=== PATIENT | male | born 1970 | race Caucasian/White ===

== ENCOUNTER 2019-09-12 21:47 | Emergency (ER) | payer OTHER, SELFPAY ==
--- NOTE | ~2019-09-12 | XR_ITS ---
EXAMINATION: XR knee LT 3V DATE: 09/12/2019 22:25 INDICATION: Nontraumatic medial left knee pain TECHNIQUE: Anteroposterior, 2 oblique and crosstable lateral views of the left knee were obtained COMPARISON: None. FINDINGS: Alignment is normal. No fracture. Joint spaces appear normal on nonweightbearing imaging. Small left knee joint effusion without layering lipohemarthrosis. Soft tissues are unremarkable. IMPRESSION: 1. Small left knee joint effusion. No osseous abnormality. Reviewed, dictated and finalized at location A.
--- NOTE | 2019-09-12 22:01 | ED.LOWEXIN ---
HPI - Extremity Injury (Lower) General Chief Complaint: Extremity Problem,Nontraumatic Stated Complaint: pain in left knee Time Seen by Provider: 09/12/19 22:01 Source: patient and family Mode of arrival: ambulatory Limitations: no limitations History of Present Illness HPI Narrative: 49-year-old man with a history of gout comes in today complaining of left knee pain that has been present for the last 3 days. Patient states that he has had no specific injury. He states that he has occasional popping and cracking in that knee. He denies fever, nausea, vomiting. 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 Injury: Left: knee Severity: moderate Relieving factors: nothing Exacerbating factors: weight bearing and movement Associated symptoms: swelling and able to partially bear weight Other symptoms: none Related Data Allergies Allergy/AdvReac Type Severity Reaction Status Date / Time No Known Allergies Allergy Verified 05/16/19 17:54 Review of Systems Constitutional: Constitutional: Denies chills and Denies fever(s) ENT: Denies dysphagia, Denies nasal congestion and Denies sore throat Cardiovascular: Cardiovascular: Denies chest pain and Denies radiating jaw, neck or arm pain Respiratory: Respiratory: Denies cough and Denies dyspnea Gastrointestinal: Gastrointestinal: Denies abdominal pain, Denies nausea and Denies vomiting Genitourinary: Genitourinary: Denies hematuria, Reports dysuria and Denies urinary frequency Musculoskeletal: Musculoskeletal: Reports as per HPI, Denies myalgias, Reports arthralgias, Reports joint swelling and Denies muscle cramps Integumentary/Breasts: Skin/Breast: Denies pruritus, Denies rash and Denies skin ulcer Neurologic: Denies vertigo, Denies dizziness and Denies syncope Psychiatric: Psychiatric: Denies anxiety and Denies depression Hematologic/Lymphatic: Hematologic/Lymphatic: Denies easy bleeding and Denies easy bruising Allergic/Immunologic: Allergic/Immunologic: Denies lip swelling and Denies wheezing PMFSH Past Medical History Medical History (Updated 09/12/19 @ 22:50 by Jose Macdonald MD) Gout Surgical History Surgical History (Updated 09/12/19 @ 22:18 by Jose Macdonald MD) Entrapment of left ulnar nerve at elbow History of open reduction and internal fixation (ORIF) procedure Social History Social History Smoking status: Never smoker Alcohol intake: never Substance use: never Living arrangements: with family Gender identity (if verbalized by the patient): Male Exam Const: General: alert Nutritional Appearance: obese Orientation/consciousness: patient oriented x3 Limitations: no limitations Other: Mild acute distress. Eyes: Conjunctivae: conjunctivae normal Pupils: Equal, round and reactive pupils present EOM: EOMs intact bilaterally Resp: Effort & Inspection: normal respiratory effort and not labored Auscultation: clear to auscultation bilaterally, no rales, no rhonchi and no wheezes Cardio: Rate: regular rate Rhythm: regular rhythm Heart sounds: no murmurs Skin: General skin exam: normal color, no jaundice and no pallor Rashes: no rashes Neuro: General: patient oriented x3, moves all extremities, no focal motor deficits and CN's II-XI intact bilaterally Extrem: General: normal to inspection and no clubbing, cyanosis or edema Other: Mild effusion of the left knee without warmth, erythema or induration. no laxity to varus, valgus, anterior drawer or Dion stress. flexion to 90? active and passive and full extension. There is tenderness along the medial and lateral joint line. Psych: Appearance: grossly normal and well kempt Mental Status: mental status grossly normal Affect: normal affect Attitude: cooperative Thought content: Yes Normal thought content present Discharge Plan Discharge Clinical Impression: Acute pain of left knee Patient Di
[2019-09-12 22:07] VITALS: BP 117/89; PULSE 98; RESP 20; TEMP 37.1; O2SAT 98
[2019-09-12 22:27] LABS: Basophils Absolute Auto 0.03 K/mm3 (0.00-0.10); Basophils Percent Auto 0.3 % (0.0-1.0); Eosinophils Absolute Auto 0.13 K/mm3 (0.02-0.50); Eosinophils Percent Auto 1.4 % (1.0-6.0); Hematocrit 42.7 % (40.0-54.0); Hemoglobin 14.9 g/dL (14.0-18.0); Immature Granulocyte Absolute 0.05 K/mm3 (0.00-0.00); Immature Granulocyte Percent A 0.5 % (0.0-0.0); Lymphocytes Absolute Auto 3.12 K/mm3 (1.10-4.50); Lymphocytes Percent Auto 32.6 % (18.0-42.0); Mean Corpuscular HGB Conc 34.9 g/dL (32.0-36.0); Mean Corpuscular Hemoglobin 30.5 pg (27.0-31.0); Mean Corpuscular Volume 87.5 fL (78.0-102.0); Mean Platelet Volume 9.6 fl (8.7-11.0); Monocytes Absolute Auto 0.71 K/mm3 (0.10-0.90); Monocytes Percent Auto 7.4 % (2.0-11.0); Neutrophils Absolute Auto 5.5 K/mm3 (1.7-7.2); Neutrophils Percent Auto 57.8 % (50.0-70.0); Platelet Count Result 255 K/mm3 (150-420); Red Blood Count 4.88 M/mm3 (4.70-6.10); Red Cell Distribution Width 12.4 % (11.6-14.4); White Blood Count 9.6 K/mm3 (4.8-10.8)
[2019-09-12 22:34] LABS: Anion Gap 15.3 mmol/L (7-16); Blood Urea Nitrogen 20 mg/dL (7-18); CRP 0.5 mg/dL (0.0-0.9); Calcium 8.5 mg/dL (8.5-10.1); Carbon Dioxide 27 mmol/L (21-32); Chloride 104 mmol/L (98-108); Estimated CRCL calculation 74 ml/min; Estimated Glomerular Filt Rate > 60; Osmolality Calculated 299 mOsm/kg (285-295); Potassium 4.3 mmol/L (3.5-5.1); Sodium 142 mmol/L (136-145)
[2019-09-12 22:35] LABS: Glucose 151 mg/dL (70-99)
[2019-09-12 23:05] VITALS: RESP 20
== END 2019-09-12 23:05 | disposition home or self-care (01) ==
PROVIDERS: Emergency Provider Emergency Medicine; PCP Family Medicine
DX: M25.562 Pain in left knee (principal)
CPT/HCPCS: 36415; 73562; 80048; 85025; 86140; 99283; A9270

== ENCOUNTER 2019-09-19 11:27 | Emergency (ER) | payer OTHER, SELFPAY ==
[2019-09-19 11:30] VITALS: BP 144/88; PULSE 96; RESP 14; TEMP 36.7; O2SAT 100
--- NOTE | 2019-09-19 12:27 | ED.LOWEXIN ---
HPI - Extremity Injury (Lower) General Chief Complaint: Extremity Injury, Lower Stated Complaint: Knee Pain x 10days Time Seen by Provider: 09/19/19 11:58 Source: patient Mode of arrival: ambulatory Limitations: no limitations History of Present Illness HPI Narrative: This is a 49 year old male that presents to the ER for left knee pain x 10 days. Reports some swelling to the knee. Reports decreased ROM in the knee due to pain. Reports a history of gout. Reports he was seen for the knee a couple days ago and given a wrap and some pain medication. Reports he continues to have pain. Denies numbness, or erythema. Related Data Allergies Allergy/AdvReac Type Severity Reaction Status Date / Time No Known Allergies Allergy Verified 09/19/19 11:32 Review of Systems Review of Systems: Narrative: CONSTITUTIONAL: Denies fever SKIN: Denies rash MUSCULOSKELETAL: Reports joint pain, and myalgia. NEUROLOGIC: Denies numbness All systems reviewed & are unremarkable except as noted in HPI and below PMFSH Past Medical History Medical History (Updated 09/19/19 @ 13:34 by Herminia Farah PA-C) Gout Surgical History Surgical History (Updated 09/12/19 @ 22:18 by Jose Macdonald MD) Entrapment of left ulnar nerve at elbow History of open reduction and internal fixation (ORIF) procedure Social History Social History Smoking status: Never smoker Alcohol intake: never Substance use: never Gender identity (if verbalized by the patient): Male Exam Narrative: Exam Narrative: GENERAL: Well-appearing, well-nourished, and in no acute distress. HEAD: Normocephalic, atraumatic. EYES: EOMI. EXTREMITIES: Normal range of motion. Mild swelling about the left knee. No erythema or warmth of the knee SKIN: Warm, dry, no rash. NEURO: No focal deficits. Alert and oriented x3. PSYCH: Normal mood and affect Course Vital Signs Vital signs: Vital Signs Temperature 98.0 F 09/19/19 11:30 Pulse Rate 96 09/19/19 11:30 Respiratory Rate 14 09/19/19 11:30 Blood Pressure 144/88 H 09/19/19 11:30 Pulse Oximetry 100 09/19/19 11:30 Temperature 98.0 F 09/19/19 11:30 Pulse Rate 96 09/19/19 11:30 Respiratory Rate 14 09/19/19 11:30 Blood Pressure 144/88 H 09/19/19 11:30 Pulse Oximetry 100 09/19/19 11:30 MDM - Extremity Injury (Lower) MDM Narrative Medical decision making narrative: Patient presents to the ER for left knee pain x 10 days. Reports swelling to the area. He is afebrile and nontoxic appearing. No erythema on exam. Patient has good ROM in the knee. CBC without leukocytosis. Inflammatory markers are mildly elevated. Patient does have a history of gout. Will treat for possible gout flare as there are no signs of infection at this point. Patient was instructed to follow up with his PCP. He was given warnings to return to the ER Lab Data Attestation: I reviewed the patient's lab results. Result diagrams: 09/19/19 12:35 Labs: Lab Results 09/19/19 09/19/19 09/19/19 Range/Units 12:35 12:35 12:35 WBC 7.0 (4.5-10.0) K/mm3 RBC 4.77 (4.6-6.20) M/mm3 Hgb 13.9 L (14.0-18.0) g/dL Hct 42.0 (42.0-52.0) % MCV 88.1 (80-100) fl MCH 29.1 (26-34) pg MCHC 33.1 (32-36) g/dl RDW 11.9 (11.5-14.5) % Plt Count 341 (150-375) k/mm3 MPV 9.4 (7.4-10.4) fl Immature Gran % (Auto) 0.6 H (0-0.5) % Neut % (Auto) 62.2 (45.5-73.1) % Lymph % (Auto) 29.1 (18.3-44.2) % Rush % (Auto) 6.1 (2.6-8.5) % Eos % (Auto) 1.6 (0-4.4) % Baso % (Auto) 0.4 (0.2-1.2) % Lymph # (Auto) 2.04 (0.9-3.2) K/mm3 Rush # (Auto) 0.4 (0.1-0.6) K/mm3 Eos # (Auto) 0.1 (0-0.3) K/mm3 Baso # (Auto) 0.0 (0.0-0.1) K/mm3 Abs Immat Gran (auto) 0.04 H (0.00-0.031) K/mm3 Absolute Neuts (auto) 4.4 (1.3-6.7) K/mm3 Absolute Nucleated RBC 0.0 (0.0-0.012) K/mm3 Nucleated RBC % 0.0 (0.
[2019-09-19 12:42] LABS: Basophils Percent Auto 0.4 % (0.2-1.2); Eosinophils Absolute Auto 0.1 K/mm3 (0-0.3); Eosinophils Percent Auto 1.6 % (0-4.4); Hemoglobin 13.9 g/dL (14.0-18.0); Immature Granulocyte Absolute 0.04 K/mm3 (0.00-0.031); Immature Granulocyte Percent A 0.6 % (0-0.5); Lymphocytes Absolute Auto 2.04 K/mm3 (0.9-3.2); Lymphocytes Percent Auto 29.1 % (18.3-44.2); Mean Corpuscular HGB Conc 33.1 g/dl (32-36); Mean Corpuscular Hemoglobin 29.1 pg (26-34); Mean Corpuscular Volume 88.1 fl (80-100); Mean Platelet Volume 9.4 fl (7.4-10.4); Monocytes Absolute Auto 0.4 K/mm3 (0.1-0.6); Monocytes Percent Auto 6.1 % (2.6-8.5); Neutrophils Absolute Auto 4.4 K/mm3 (1.3-6.7); Neutrophils Percent Auto 62.2 % (45.5-73.1); Platelet Count Result 341 k/mm3 (150-375); Red Blood Count 4.77 M/mm3 (4.6-6.20); Red Cell Distribution Width 11.9 % (11.5-14.5)
[2019-09-19 13:01] LABS: CRP 3.3 mg/dL (<1.0); Uric Acid 7.1 mg/dL (3.5-8.5)
[2019-09-19 13:05] LABS: D Dimer 0.39 ug/mL (<0.48)
[2019-09-19 13:59] LABS: Erythrocyte Sedimentation Rate 44 mm/hr (0-20)
[2019-09-19] MEDS: COLCHICINE 0.6 MG TABLET 1.2 MG PO (14:14)
[2019-09-19 14:35] VITALS: BP 120/80; PULSE 86; RESP 16; O2SAT 100
== END 2019-09-19 14:38 | disposition home or self-care (01) ==
PROVIDERS: Physician Assistant; Emergency Provider Emergency Medicine; PCP Family Medicine
DX: M25.562 Pain in left knee (principal); M10.9 Gout, unspecified
CPT/HCPCS: 36415; 84550; 85025; 85380; 85652; 86140; 99283; A9270